=== PATIENT | male | born 1985 | race Caucasian/White ===

== ENCOUNTER 2025-07-06 01:33 | Emergency (ER) | payer OTHER ==
[~2025-07-06] VITALS: Ht 170.2 cm; Wt 77.0 kg
[2025-07-06 01:36] VITALS: O2SAT 98
[2025-07-06] MEDS ORDERED: AMOX1TAB16 MT (03:58)
[2025-07-06] MEDS: TETANUS, DIPHTHERIA, PERTUSSIS VAC/PF 0.5ML (>10YR OLD) IM ONE (04:02)
[2025-07-06] MEDS: LIDOCAINE HCL 1% 20ML VIAL INFIL ONE (04:03)
[2025-07-06 04:08] VITALS: BP 112/67; PULSE 69; RESP 16; TEMP 36.6; O2SAT 99
== END 2025-07-06 04:09 ==
LOC: ER 01:33
DX: S01.511A Laceration without foreign body of lip, initial encounter (principal); X58.XXXA Exposure to other specified factors, initial encounter; Y93.89 Activity, other specified; Y92.89 Other specified places as the place of occurrence of the external cause; Y99.8 Other external cause status
CPT/HCPCS: 99283; 90715; 12013; 90471; J2003